=== PATIENT | female | born 1955 | race Caucasian/White ===

== ENCOUNTER 2019-02-17 06:20 | Emergency (ER) | payer BC ==
[~2019-02-17] VITALS: Ht 157.5 cm; Wt 86.4 kg
[~2019-02-17 06:20] MED LIST: ASPIRIN 32325 MG/TA1 PO; CELEBREX 200MG200 MG PO; FERROUS SU325 MG/TAB PO; FERROUS SULFATE65 MG PO; FOLIC ACID 40400 MCG PO; NORCO 325 MG-7.1 TAB PO; PRIL40 PO; PROZAC40 MG PO; TYLENOL 325MG325 MG PO; ULTRAM 50MG TAB50 MG PO; VITAMIN C500 MG PO; ZOCOR 20MG20 MG PO
[2019-02-17 06:28] VITALS: TEMP 98.7
[2019-02-17 07:10] LABS: BASO # 0.1 (0.0-0.2); BASO % 1.2 % (0.0-2.0); EOS # 0.2 (0.0-0.7); EOS % 3.8 % (0-4.0); GRAN # 3.1 (1.4-6.5); GRAN % 53.1 % (42.2-75.2); HEMATOCRIT 39.8 % (37.0-47.0); HEMOGLOBIN 12.5 g/dl (12.5-16.0); LYMPH # 1.8 (1.2-3.4); MEAN CELL VOLUME 88 fl (80.0-100.0); MEAN CORPUSCULAR HEMOGLOBIN 28 pg (27.0-31.0); MEAN CORPUSCULAR HGB CONC 31 g/dl (33.0-37.0); MEAN PLATELET VOLUME 9.2 fl (7.4-10.4); MONO # 0.6 (0.1-0.6); MONO % 9.7 % (1.7-9.3); PLATELET COUNT 270 K/mm3 (130-400); RED BLOOD COUNT 4.53 M/mm3 (4.10-5.30); REDCELL DISTRIBUTION WIDTH-CV 14.4 % (11.5-14.5)
[2019-02-17 07:18] LABS: ALBUMIN 4.2 gm/dL (3.5-5.0); BILIRUBIN,TOTAL 0.5 mg/dL (0.0-1.0); CALCIUM 9.2 mg/dL (8.4-10.2); CREATININE, serum 0.92 mg/dL (0.52-1.25); TOTAL PROTEIN 7.8 gm/dL (6.4-8.2)
[2019-02-17] MEDS ORDERED: MEDROL 4MG DOSPA4 MG PO (08:15)
[2019-02-17] MEDS ORDERED: NORCO 325 MG-51 TAB PO (08:15)
[2019-02-17] MEDS ORDERED: ASPIRIN 81M81 MG/TA2 PO (08:40)
[2019-02-17 08:46] VITALS: BP 133/74; PULSE 62
== END 2019-02-17 08:46 | disposition home or self-care (01) ==
LOC: COL.ER 06:20
PROVIDERS: Emergency Medicine
DX: M54.31 Sciatica, right side (principal); E78.5 Hyperlipidemia, unspecified; K21.9 Gastro-esophageal reflux disease without esophagitis; Z79.82 Long term (current) use of aspirin
CPT/HCPCS: J3010; J7512

== ENCOUNTER 2019-10-02 10:04 | Outpatient (CLI) | payer OTHER ==
[~2019-10-02] VITALS: Ht 157.5 cm; Wt 78.7 kg
[~2019-10-02 10:04] MED LIST changes: +ASPIRIN 81M81 MG/TA2 PO; +MEDROL 4MG DOSPA4 MG PO; +NORCO 325 MG-51 TAB PO
[2019-10-02 10:23] VITALS: BP 115/74; PULSE 72; TEMP 98.5
[2019-10-02] MEDS ORDERED: SYNTHROID0.05 MG/TA PO (10:23)
[2019-10-02 12:34] VITALS: BP 122/73; PULSE 69
--- NOTE | 2019-10-02 12:38 | NUR ---
SEE MERGE DOCUMENTATION FOR MEDICATION ADMINISTRATION TIMES AND INTRA/POST PROCEDURE SEDATION ASSESSMENTS.
[2019-10-02 13:40] VITALS: BP 116/72; PULSE 68; TEMP 98.5
[2019-10-02 13:55] VITALS: BP 114/69; PULSE 72; TEMP 98.5
--- NOTE | 2019-10-02 14:02 | NUR ---
Back from labeling specialist by bed. Alert and oriented, denies pain and needs at this time. VSS. Family bedside
[2019-10-02 14:16] VITALS: BP 103/69; PULSE 71; TEMP 98.5
[2019-10-02 14:31] VITALS: BP 102/62; PULSE 68; TEMP 98.5
--- NOTE | 2019-10-02 14:35 | NUR ---
Sitting up in bed slowly pt had some discomfort, but ambulated without discomfort. Reported to Dr. Urena
--- NOTE | 2019-10-02 14:45 | NUR ---
INT discontinued intact. Discharge instructions given. Transferred to private car by jayjay
== END 2019-10-02 14:59 | disposition home or self-care (01) ==
LOC: COL.CAR 10:04
DX: S32.010A Wedge compression fracture of first lumbar vertebra, initial encounter for closed fracture (principal); E03.9 Hypothyroidism, unspecified; Z90.5 Acquired absence of kidney; Z96.653 Presence of artificial knee joint, bilateral; Z88.0 Allergy status to penicillin; Z88.2 Allergy status to sulfonamides
CPT/HCPCS: J2250; J3010; J7120

== ENCOUNTER 2020-04-29 05:41 | Day surgery (SDC) | payer OTHER ==
[~2020-04-29] VITALS: Ht 154.9 cm; Wt 68.3 kg
[~2020-04-29 05:41] MED LIST changes: +SYNTHROID0.05 MG/TA PO
[2020-04-29] MEDS ORDERED: FOSAMAX 70MG TA70 MG PO (06:05)
[2020-04-29 06:20] VITALS: BP 108/59; PULSE 70; TEMP 98.5
[2020-04-29 08:15] VITALS: BP 96/58; PULSE 72; TEMP 97.7
--- NOTE | 2020-04-29 08:15 | NUR ---
PATIENT TRANSPORTED TO [facility] 8 PER CART ACCOMPANIED BY OR STAFF. MONITORS APPLIED. PATIENT ALERT AND TALKING WITH STAFF. VSS. PATIENT DENIES DISCOMFORT AND NAUSEA. VERBAL REPORT RECEIVED. 0820 PATIENT GIVEN ICE WATER TO DRINK
[2020-04-29 08:45] VITALS: BP 105/62; PULSE 64
--- NOTE | 2020-04-29 08:45 | NUR ---
VSS. PATIENT DENIES DISCOMFORT AND NUASEA. DRINKING WATER WITHOUT PROBLEMS. PATIENT GIVEN TOAST AND APPLESAUCE TO EAT.
[2020-04-29 09:00] VITALS: BP 109/60; PULSE 65
--- NOTE | 2020-04-29 09:00 | NUR ---
VSS. PATIENT EATING WITHOUT PROBLEMS. PATIENT CONTINUES TO DENY DISCOMFORT AND NAUSEA.
[2020-04-29 09:30] VITALS: BP 97/56; PULSE 68
--- NOTE | 2020-04-29 09:30 | NUR ---
VSS PATIENT STATES SHE IS DOING WELL. FAMILY CALLED TO PICKUP PATIENT.
--- NOTE | 2020-04-29 09:40 | NUR ---
VSS. PATIENT GIVEN DISCHARGE INSTRUCTIONS VERBAL AND WRITTEN. GIVEN DISCHARGE PACKET. QUESTIONS ANSWERED AND PATIENT VOICED UNDERSTANDING. 0950 IV SITE DC'D. PATIENT AMBULATED TO BATHROOM AND VOIDS. PATIENT CHANGES INTO [place] [employer]OTHES. 1003 PATIENT DISCHARGED TO SON'S SUV PER WHEEL CHAIR. WITH PERSONAL BELONGS AND DISCHARGE PACKET.
== END 2020-04-29 10:03 | disposition home or self-care (01) ==
LOC: SDCO 05:41
DX: M21.622 Bunionette of left foot (principal); M21.621 Bunionette of right foot; Z96.653 Presence of artificial knee joint, bilateral; E78.2 Mixed hyperlipidemia; K21.9 Gastro-esophageal reflux disease without esophagitis; J45.20 Mild intermittent asthma, uncomplicated; Z90.5 Acquired absence of kidney; M81.0 Age-related osteoporosis without current pathological fracture; E03.9 Hypothyroidism, unspecified; F32.9 Major depressive disorder, single episode, unspecified; Z88.1 Allergy status to other antibiotic agents; Z88.3 Allergy status to other anti-infective agents; Z80.3 Family history of malignant neoplasm of breast; Z82.3 Family history of stroke
CPT/HCPCS: J0690; J2250; J2405; J2704; J3010; J7120